=== PATIENT | female | born 1945 | race Hispanic/Latino ===

== ENCOUNTER 2017-11-25 13:24 | Outpatient (CLI) | payer BC ==
--- NOTE | 2017-11-25 14:18 | RAD ---
CHEST 2 VIEWS: HISTORY: Cough. FINDINGS: Cardiac silhouette and pulmonary vasculature are unremarkable. Mediastinum is midline. There is no confluent airspace consolidation, pneumothorax, or pleural fluid. IMPRESSION: No active cardiopulmonary abnormalities are demonstrated. POS: [facility]
== END 2017-11-25 13:25 | disposition home or self-care (01) ==
LOC: SCSRAD 13:24
PROVIDERS: ATTEND Internal Medicine
DX: R05 Cough (principal)
CPT/HCPCS: 71046

== ENCOUNTER 2019-05-21 07:09 | Outpatient (CLI) | payer BC ==
--- NOTE | 2019-05-21 08:17 | ULT ---
ABDOMINAL ULTRASOUND: DATE: 05/21/2019. COMPARISON: None. HISTORY: Right-sided abdominal pain. TECHNIQUE: Multiplanar, avelar scale, sonographic imaging of the abdomen obtained. FINDINGS: Imaged IVC and aorta appear within normal limits. Imaged pancreas is unremarkable. The tail is obsc ured by bowel gas. No focal liver lesion or intrahepatic biliary dilatation. Common bile duct measures 5 mm, within normal limits. No gallbladder wall thickening or pericholecys tic fluid. No gallstones are noted. Negative Loya's sign. Right kidney measures 10.4 cm craniocaudal dimension and demonstrates no stone, hydronephrosis, or ma ss. The left kidney measures 11.5 cm craniocaudal dimension and demonstrates no stone, hydronephrosis, or mass. The spleen measures up to 8.4 cm, within normal limits. IMPRESSION: No acute findings. POS: OFF
== END 2019-05-21 07:10 | disposition home or self-care (01) ==
LOC: SCSULT 07:09
PROVIDERS: ATTEND Internal Medicine
DX: R10.9 Unspecified abdominal pain (principal)
CPT/HCPCS: 93975

== ENCOUNTER 2024-06-18 07:45 | Outpatient (CLI) | payer BC | END 2024-06-18 07:46 | disposition home or self-care (01) | LOC: NM 07:45 | PROVIDERS: ATTEND Psychiatry & Neurology Neurology | DX: G31.84 Mild cognitive impairment of uncertain or unknown etiology (principal); G25.9 Extrapyramidal and movement disorder, unspecified | CPT/HCPCS: 78803; A9584 ==